=== PATIENT | female | born 1935 ===

== ENCOUNTER 2016-11-10 08:37 | Day surgery (SDC) | payer MEDICARE, OTHER ==
--- NOTE | ~2016-11-10 | EGD ---
EGD REPORT [facility] [address] [address] NAME: ZHANE SIMS : 35 STATUS : REG [facility] PAT#: [id number] AGE: 81 ADM/REG DATE : 11/10/16 MR#: [id number] REPORT SERV DATE: 11/10/16 DICTATED BY: FELICIANO OSEGUERA DATE: 11/10/16 REPORT STATUS : Draft [facility] DATE: 11/10/16 [facility] Patient Name: Zhane Sims Date of : 1935 Attending MD: FELICIANO OSEGUERA MD Procedure Date No Time: 11/10/2016 Procedure: Colonoscopy Indications: Surveillance: History of numerous (> 10) adenomas on last colonoscopy (< 3 yrs) Referring MD: RHONDA YIP MD Medicines: See the Anesthesia note for documentation of the administered medications Complications: No immediate complications. Procedure: Pre-Anesthesia Assessment: - ASA Grade Assessment: II - A patient with mild systemic disease. After I obtained informed consent, the scope was passed under direct vision. Throughout the procedure, the patient's blood pressure, pulse, and oxygen saturations were monitored continuously. The PCF [id number] was introduced through the anus and advanced to the cecum, identified by appendiceal orifice and ileocecal valve. The colonoscopy was performed without difficulty. The patient tolerated the procedure well. The quality of the bowel preparation was adequate. Findings: The perianal and digital rectal examinations were normal. Internal hemorrhoids were found during retroflexion and were small. A sessile polyp was found at the hepatic flexure. The polyp was small in size. The polyp was removed with a cold biopsy forceps. Resection and retrieval were complete. Three sessile polyps were found in the descending colon. The polyps were small in size. These polyps were removed with a cold biopsy forceps. Resection and retrieval were complete. A sessile polyp was found in the sigmoid colon. The polyp was 10 mm in size. The polyp was removed with a hot snare. Resection and retrieval were complete. Diverticula were found in the sigmoid colon. Impression: - Internal hemorrhoids. - One small polyp at the hepatic flexure. Resected and retrieved. - Three small polyps in the descending colon. Resected and retrieved. EGD REPORT [id number] [place]. [address] NAME: ZHANE SIMS : 35 STATUS : REG [facility]#: [id number] AGE: 81 ADM/REG DATE : 11/10/16 MR#: [id number] REPORT SERV DATE: 11/10/16 DICTATED BY: FELICIANO OSEGUERA DATE: 11/10/16 REPORT STATUS : Draft TRANSCRIBED BY: [employer] DATE: 11/10/16 - One 10 mm polyp in the sigmoid colon. Resected and retrieved. - Diverticulosis in the sigmoid colon. Recommendation: - Patient has a contact number available for emergencies. The signs and symptoms of potential delayed complications were discussed with the patient. Return to normal activities tomorrow. Written discharge instructions were provided to the patient. - Regular diet. - Continue present medications. - Repeat colonoscopy for surveillance based on pathology results. - FOR YOUR BIOPSY RESULTS: Please go to [email or web address] and register to receive your results via the portal. Your biopsy results will be posted there in about 7 to 10 days. IF you do not see result in 10 days, call office. Procedure Code(s): --- Professional --- 71338, Colonoscopy, flexible, proximal to splenic flexure; with removal of tumor(s), polyp(s), or other lesion(s) by snare technique 37824, 59, Colonoscopy, flexible, proximal to splenic flexure; with biopsy, single or multiple Diagnosis Code(s): --- Professional --- K64.8, Other hemorrhoids D12.5, Benign neoplasm of sigmoid colon D12.4, Benign neoplasm of descending colon D12.3, Benign neoplasm of transverse colon Z86.010, Personal history of colonic polyps CPT copyright 2013 [employer]. All rights reserved. The codes documented in this report are preliminary and upon director of public works review may be revised to meet current compliance requirements. Feliciano Oseguera MD FELICIANO OSEGUERA MD 11/10/2016 11:28 AM This report has been signed electronically. Number of Addenda: 0 Note Initiated On: 11/10/2016 10:54 AM EGD REPORT [facility] [address] [address] NAME: ZHANE SIMS : [birth year] STATUS : REG [facility] PAT#: [id number] AGE: 81 ADM/REG DATE : 11/10/16 MR#: [id number] REPORT SERV DATE: 11/10/16 DICTATED BY: FELICIANO OSEGUERA DATE: 11/10/16 REPORT STATUS : Draft TRANSCRIBED BY: [employer] DATE: 11/10/16 Scope Withdrawal Time 0 hours 13 minutes 50 seconds [address] [address]
[~2016-11-10 08:37] MED LIST: ASAB PO; CALTRAT600 PO; MULTIPLE VIT PO; VITAMIN D31000 UNIT PO
== END 2016-11-10 23:59 | disposition home or self-care (01) ==
LOC: DMU 08:37
PROVIDERS: Internal Medicine Gastroenterology
PROC: 0DBM8ZZ Excision of Descending Colon, Via Natural or Artificial Opening Endoscopic (ICD-10-PCS; 2016-11-10)
PROC: 0DBK8ZZ Excision of Ascending Colon, Via Natural or Artificial Opening Endoscopic (ICD-10-PCS; principal; 2016-11-10 11:00)
PROC: 0DBN8ZZ Excision of Sigmoid Colon, Via Natural or Artificial Opening Endoscopic (ICD-10-PCS; 2016-11-10 11:00)
DX: Z12.11 Encounter for screening for malignant neoplasm of colon (principal); D12.4 Benign neoplasm of descending colon; D12.5 Benign neoplasm of sigmoid colon; K21.9 Gastro-esophageal reflux disease without esophagitis; Z79.82 Long term (current) use of aspirin; Z79.899 Other long term (current) drug therapy
CPT/HCPCS: 88305